=== PATIENT | male | born 1960 | race Caucasian/White ===

== ENCOUNTER 2023-11-10 20:14 | Emergency (ER) | payer BC ==
[2023-11-10] MEDS ORDERED: IPRATROPIUM 0.5 MG/2.5 ML NEBU INHALATION ONE (21:00)
[2023-11-10] MEDS ORDERED: SODIUM CHLORIDE 0.9% 1,000 ML BAG ONE (21:00)
[2023-11-10] MEDS ORDERED: ALBUTEROL NEBULIZED 2.5 MG/3 ML INHALATION ONE (21:00)
[2023-11-10] MEDS ORDERED: MORPHINE SULFATE 2 MG/ML SYRINGE ONE (21:09)
[2023-11-10] MEDS ORDERED: methylPREDNISolone SOD SUCCI 125 MG/2 ML VIAL ONE (21:09)
[2023-11-10] MEDS ORDERED: DEXAMETHASONE SOD PHOSPHATE 10 MG/ML 1 ML VIAL ONE (22:43)
[2023-11-10] MEDS ORDERED: predniSONE 50 MG TAB ONE (22:43)
[2023-11-10] MEDS ORDERED: AZITHROMYCIN 500 MG TAB ONE (22:44)
[2023-11-10] MEDS ORDERED: IPRATROPIUM-ALBUTEROL 3 ML NEB ONE (23:00)
[2023-11-10] MEDS ORDERED: SODIUM CHLORIDE 0.9% 500 ML BAG ONE (23:00)
--- NOTE | 2023-12-21 11:43 | XR ---
EXAMINATION TYPE: XR chest 1V DATE OF EXAM: 11/21/2023 COMPARISON: No comparison available on downtime PACS. INDICATION: Her breath TECHNIQUE: Single frontal view of the chest is obtained. FINDINGS: The heart size is normal. The pulmonary vasculature is normal. The lungs are clear. IMPRESSION: 1. No acute pulmonary process.
== END 2023-11-10 23:15 | disposition home or self-care (01) ==
LOC: EC 20:14
DX: J44.9 Chronic obstructive pulmonary disease, unspecified (principal)
CPT/HCPCS: 94640; 94644; 93005; 83880; 80053; 83735; 84100; 84484; 85027; 85610; 85730; 71045; 99285; J1100; J2270; J7512; J2919

== ENCOUNTER → 2024-02-18 | Outpatient (CLI) | payer BC ==
--- NOTE | 2024-01-21 11:32 | NM ---
EXAMINATION TYPE: NM myocardial SPECT single DATE OF EXAM: 01/21/2024 COMPARISON: NONE CLINICAL INDICATION: Male, 63 years old with history of J43.9 EMPHYSEMA; Following administration of 9.38 mCi Tc 99m Sestamibi. Images obtained 45 minutes post injection. FINDINGS: Calculated ejection fraction is 66% Only resting images are submitted which demonstrates diffuse homogeneous uptake of radiotracer. Asses sment for reversible ischemia is nondiagnostic. IMPRESSION: Limited exam as discussed above [facility], , 01/21/2024 11:30 AM
--- NOTE | 2024-02-18 12:32 | CA ---
Exercise Nuclear Stress Test Report Name: Woo Suh Exam Date: 02/18/2024 10:37 Exam Location: [facility] Ht (in): 70 Wt (lb): 140 BSA: 1.79 Ordering Phys: Ira Stafford MD Referring Phys: IRA STAFFORD Technologist: MCKINLEY Age: 63 Gender: M : 1960 Procedure CPT: Indications: J43.9 EMPHYSEMA,UNSPECIFIED ICD-10 Codes: Patient History: Shortness of breath and hypertension Medications: Meds past 24 hrs: Pretest Chest Pain: STRESS TEST Sen Protocol Exercise Duration (min:sec): 03:[address] Depressions (mm): Angina Score: Sheehan Score: Resting HR (bpm): 68 Peak HR (bpm): 137 Resting BP (mmHg): 146 / 79 Peak BP (mmHg): 182 / 97 MPHR: 155 Target HR: 132 % MPHR: 88 METS: 5.9 Total Dose: Peak Dose: Atropine: Double Product: 16639 BP Response: Stress Termination: Reached target heart rate Stress Symptoms: Dyspnea Stress Summary: ECG ANALYSIS Resting ECG: Stress ECG: CONCLUSIONS Low exercise tolerance Normal EKG in response to exercise Dr. Kwasi Newell MD (Electronically Signed) Final Date: 18 February 2024 12:32
--- NOTE | 2024-02-18 16:23 | NM ---
EXAMINATION TYPE: NM stress cardiolite complete DATE OF EXAM: 02/18/2024 COMPARISON: NONE CLINICAL INDICATION: Male, 63 years old with history of J43.9 EMPHYSEMA,UNSPECIFIED; history of hyper cholesterolemia and hypertension. History of tobacco use. TECHNIQUE: After the intravenous administration of 8.4 mCi Tc 99m Sestamibi - Rest images obtained 4 5 minutes post injection. The patient exercised using a RICKY protocol and 1 minute prior to peak e xercise was injected with 24.5 mCi Tc 99m Sestamibi - Stress images obtained 45 minutes post injectio n. FINDINGS: Targeted heart rate was achieved during performance of the study. Review of stress and rest SPECT meghna ges demonstrates no distinct perfusion abnormality. Gated analysis shows normal wall motion with an estimated left ventricular ejection fraction of 57 %. IMPRESSION: No scintigraphic evidence for reversible ischemia [facility], , 02/18/2024 4:21 PM
== END | disposition home or self-care (01) ==
LOC: RADNMMAIN 01-21 08:54
PROVIDERS: ATTEND Family Medicine
DX: J43.9 Emphysema, unspecified (principal); I10 Essential (primary) hypertension; E78.00 Pure hypercholesterolemia, unspecified; Z87.891 Personal history of nicotine dependence
CPT/HCPCS: 78451; A9500; 78452; 93017

== ENCOUNTER → 2024-03-13 | Outpatient (CLI) | payer BC ==
[2024-03-13 09:12] LABS: African American GFR (CKD) 60 (>60 ml/min/1.73 sqM); Blood Urea Nitrogen 16 mg/dL (9-20); Non-African American GFR(CKD) 52 (>60 ml/min/1.73 sqM)
--- NOTE | 2024-03-13 10:46 | CT ---
EXAMINATION TYPE: CT angio chest DATE OF EXAM: 03/13/2024 9:34 AM COMPARISON: 11/10/2023 CLINICAL INDICATION: Male, 64 years old with history of I71.20 THORACIC AORTIC ANEURYSM, WITHOUT RUPT URE,; shortness of breath/pain R/O PE, POSSIBLE THORACIC AORTIC ANEURYSM TECHNIQUE/CONTRAST: CTA scan of the thorax is performed without and with IV Contrast, patient injected with 100 mL of Iso shade 370, MIP images are created and reviewed these are created on a separate workstation.. CT DLP: 235.2 mGycm, Automated exposure control for dose reduction was used. FINDINGS: Lungs/Pleura: No evidence of focal consolidation, pleural effusion or pneumothorax. Centrilobular emp hysema changes seen throughout the lung apices Airway: Large airways are patent. Heart: Heart is within normal limits for size. Vasculature: Ascending thoracic aorta measuring up to 35 mm which is within normal limits. No evidenc e for intramural hematoma on noncontrast imaging. No evidence of intimal flap to suggest dissection. No aneurysm identified. Scattered atherosclerotic disease. There is no evidence for a filling defect within the pulmonary vasculature to suggest acute pulmonary embolism. The pulmonary artery is of nor mal size. There are 2 left renal arteries and one right renal artery. Arteries are patent. Mediastinum: No gross evidence of adenopathy. Musculoskeletal: No acute osseous abnormalities Soft Tissues/lymph nodes: Unremarkable. Lower neck: No significant findings. Upper Abdomen: No significant findings. IMPRESSION: 1. No evidence of pulmonary embolism. 2. No evidence for aortic aneurysm. 3. Mild to moderate atherosclerosis of the arterial vasculature. 4. Moderate emphysema changes. [facility], , 03/13/2024 10:44 AM
== END | disposition home or self-care (01) ==
LOC: RADCTMAIN 08:28
PROVIDERS: ATTEND Family Medicine
DX: I71.20 Thoracic aortic aneurysm, without rupture, unspecified (principal); J43.9 Emphysema, unspecified
CPT/HCPCS: 82565; 84520; 71275; 36415; Q9967